=== PATIENT | male | born 1945 | race Caucasian/White ===

== ENCOUNTER 2017-06-19 15:07 | Inpatient (IN) | payer OTHER ==
[~2017-06-19] VITALS: Ht 162.6 cm; Wt 89.8 kg
--- NOTE | ~2017-06-19 | EKG ---
[address] [address] ELECTROCARDIOGRAM REPORT Name: [place] Room #: 364-P ADM IN M.R.#: [id number] Admission: 06/19/17 Attend Phys: Steve Preciado MD Discharge: Date of : 41 Report #: [id number] THIS REPORT FOR: //name// [facility] ED Test Date: 2017-06-19 Test Time: 15:09:19 Pat Name: ASIA [place] Department: Room: 364 Gender: M Technical Support Professional: MZOOK : 1945 Requested By: Bebeto Oconnell Order Number: [id number] MD: Tommy Leiva Measurements Intervals Moodus Rate: 60 P: 22 SC: 176 QRS: -35 QRSD: 141 T: -18 QT: 446 QTc: 446 Interpretive Statements Sinus rhythm Right bundle branch block Probable inferior infarct, age indeterminate No previous ECG available for comparison Electronically Signed On 06-19-2017 21:35:59 [employer] by Tommy Leiva [email or web address] <ELECTRONICALLY SIGNED> By: Tommy Leiva MD 06/19/17 [id number] Tommy Leiva MD /JUDY
[2017-06-19 15:08] VITALS: BP 131/73
[2017-06-19] MEDS ORDERED: ASPIRIN325 PO (15:18)
[2017-06-19] MEDS ORDERED: CARDIZEM CD180 MG PO (15:18)
[2017-06-19] MEDS ORDERED: GLIPIZIDE-METF1 EAC1 PO (15:19)
[2017-06-19] MEDS ORDERED: ATORVASTATIN CA40 MG PO (15:19)
[2017-06-19] MEDS ORDERED: MOBIC15 MG PO (15:19)
[2017-06-19] MEDS ORDERED: CARVEDILOL6.25 MG (15:20)
[2017-06-19] MEDS ORDERED: LISINOPRIL-HCT1 EAC1 PO (15:21)
[2017-06-19] MEDS ORDERED: LANTUS100 UNIT/M SUBQ ×2 (15:21→15:22)
[2017-06-19] MEDS ORDERED: ISORDIL40 M1 PO (15:22)
[2017-06-19] MEDS ORDERED: ALEVE220 MG PO (15:23)
[2017-06-19 15:36] LABS: ABSOLUTE NEUTROPHILS 7.6 thou/uL (1.4-8.2); BASOPHILS 1.1 % (0.0-2.0); EOSINOPHILS 0.8 % (0.0-3.0); HEMATOCRIT 47.3 % (42.0-52.0); LYMPHOCYTES 16.6 % (24.0-44.0); MANUAL DIFF NO; MCH 30.3 pg (26.0-34.0); MCHC 33.9 g/dL (28.0-37.0); MCV 89.5 fL (80.0-100.0); MONOCYTES 10.5 % (1.0-8.0); PLATELET COUNT 185 thou/uL (150-400); RBC 5.28 mil/uL (4.50-6.00); RDW 15.7 % (10.5-14.5); WBC 10.7 thou/uL (4.0-11.0)
[2017-06-19 15:42] LABS: POC CA IONIZED 3.9 mg/dL (4.5-5.3); POC CREATININE 1.3 mg/dL (0.6-1.3); POC POTASSIUM 5.9 mmol/L (3.5-5.1)
[2017-06-19 15:43] VITALS: BP 131/73
[2017-06-19 15:45] LABS: ANION GAP 8 mmol/L (7-16); BUN 24 mg/dL (7-18); CALCIUM 9.4 mg/dL (8.5-10.1); CHLORIDE 101 mmol/L (98-107); CO2 28 mmol/L (21-32); CREATININE 1.4 mg/dL (0.7-1.3); GLUCOSE 172 mg/dL (74-106); POTASSIUM 4.1 mmol/L (3.5-5.1); SODIUM 137 mmol/L (136-145)
[2017-06-19 16:03] LABS: CHOLESTEROL 121 mg/dL (<200); HDL CHOLESTEROL 23 mg/dL (>40); LDL CHOLESTEROL 61 mg/dL (<100); TC:HDL 5.3 Ratio (Not establshd); TRIGLYCERIDE 187 mg/dL (<150); TROPONIN-I < 0.04 ng/mL (<0.06); VLDL 37 mg/dL (<40)
[2017-06-19 17:02] VITALS: BP 154/87
[2017-06-19 17:48] VITALS: BP 161/93
[2017-06-19 20:00] VITALS: BP 152/87
[2017-06-20 04:00] VITALS: BP 173/92
[2017-06-20 06:04] LABS: CALCIUM 8.7 mg/dL (8.5-10.1); CREATININE 1.1 mg/dL (0.7-1.3); POTASSIUM 3.5 mmol/L (3.5-5.1)
[2017-06-20 07:34] VITALS: BP 187/101
[2017-06-20 11:48] VITALS: BP 150/82
[2017-06-20 15:52] VITALS: BP 153/84
[2017-06-20 20:25] VITALS: BP 152/82
[2017-06-21 04:10] VITALS: BP 145/63
[2017-06-21 08:14] VITALS: BP 180/96
[2017-06-21] MEDS ORDERED: CLOPIDOGREL75 MG PO (08:55)
[2017-06-21 11:46] VITALS: BP 180/96
== END 2017-06-21 14:04 | disposition home or self-care (01) | DRG 64 ==
LOC: ER 15:07 → EROBS 15:49 → 3W 15:49 → ENTRNSPT 06-21 12:42 → EDTRNSPTSTS 06-21 12:43 → 3W 06-21 14:04
PROVIDERS: Hospitalist; Nurse Practitioner; Psychiatry & Neurology Neurology
DX: I63.9 Cerebral infarction, unspecified (principal); N17.0 Acute kidney failure with tubular necrosis; R47.01 Aphasia; I10 Essential (primary) hypertension; E11.9 Type 2 diabetes mellitus without complications; I25.10 Atherosclerotic heart disease of native coronary artery without angina pectoris; E87.5 Hyperkalemia; I48.91 Unspecified atrial fibrillation; E78.5 Hyperlipidemia, unspecified; Z79.4 Long term (current) use of insulin; Z79.82 Long term (current) use of aspirin; Z79.899 Other long term (current) drug therapy; I25.2 Old myocardial infarction; Z95.5 Presence of coronary angioplasty implant and graft; Z87.442 Personal history of urinary calculi
CPT/HCPCS: 10779